=== PATIENT | female | born 1945 | race Caucasian/White ===

== ENCOUNTER 2022-06-11 10:25 | Emergency (ER) | payer OTHER, SELFPAY ==
[2022-06-11 11:06] VITALS: BP 166/74; PULSE 76; RESP 16; TEMP 36.4; O2SAT 99; BMI 25.7
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
== END 2022-06-11 13:26 | disposition home or self-care (01) ==
PROVIDERS: Emergency Provider Student in an Organized Health Care Education/Training Program
DX: M25.511 Pain in right shoulder (principal); V89.2XXA Person injured in unspecified motor-vehicle accident, traffic, initial encounter
CPT/HCPCS: 73030; 99283; 99284